=== PATIENT | female | born 1985 | race American Indian/Alaskan Native ===

== ENCOUNTER 2017-07-01 16:58 | Emergency (ER) | payer OTHER ==
[2017-07-01 20:27] LABS: Bilirubin,Urine NEG (Negative); Blood,Urine NEG (Negative); Color,Urine Yellow (Yellow); Mucus,Urine 3+ /HPF; Nitrite,Urine NEG (Negative); Protein,Urine <15 mg/dL mg/dL (Negative)
[2017-07-01 20:44] LABS: HCG Qualitative,Urine Negative (Negative)
[2017-07-02 00:45] VITALS: BP 103/72
[2017-07-02] MEDS ORDERED: ROCEPHIN IM ONE (03:14)
[2017-07-02] MEDS ORDERED: XYLOCAINE 1% MPF 5 mL INFILTRATI ONE (03:14)
[2017-07-02] MEDS ORDERED: ZOFRAN ODT PO ONE (03:15)
[2017-07-02] MEDS ORDERED: ZITHROMAX PO ONE (03:15)
[2017-07-02] MEDS ORDERED: ZOFRAN ODT ONE (03:17)
[2017-07-02] MEDS ORDERED: ZITHROMAX ONE (03:18)
[2017-07-02] MEDS ORDERED: ROCEPHIN ONE (03:18)
--- NOTE | 2017-07-02 04:05 | Emergency Department Report ---
ED Female HPI - General Chief complaint: Urogenital-Female Stated complaint: ABDOMINAL PAIN Time Seen by Provider: 07/02/17 02:52 Source: patient Mode of arrival: Ambulatory Limitations: No Limitations - History of Present Illness MD Complaint: vaginal discharge, possible STD -: Gradual Location: LLQ, RLQ Radiation: non-radiating Severity: mild Severity scale (0 -10): 8 Quality: cramping, other Consistency: intermittent Improves with: none Worsens with: none Are you Now?: No Associated Symptoms: vaginal discharge, vaginal bleeding - Related Data Sexually active: Yes (no condom ) Previous Rx's Medication Instructions Recorded Last Taken Type metroNIDAZOLE [Flagyl] 500 mg PO Q12HR #14 tab 07/02/17 Unknown Rx Allergies Allergy/AdvReac Type Severity Reaction Status Date / Time Sulfa (Sulfonamide Allergy Rash Verified 07/01/17 18:20 Antibiotics) ED Review of Systems ROS: Stated complaint: ABDOMINAL PAIN Other details as noted in HPI Comment: All other systems reviewed and negative Constitutional: no symptoms reported Respiratory: no symptoms reported Cardiovascular: as per HPI Endocrine: no symptoms reported Gastrointestinal: other (tenderness to palpitation to RLQ and LLQ) Genitourinary: discharge. denies: urgency, dysuria ED Past Medical Hx - Past Medical History Previous Medical History?: No Hx Hypertension: No Hx CVA: No Hx Heart Attack/AMI: No Hx Congestive Heart Failure: No Hx Diabetes: No Hx Deep Vein Thrombosis: No Hx Pulmonary Embolism: No Hx Liver Disease: No Hx Renal Disease: No Hx of Cancer: No Hx Sickle Cell Disease: No Hx Arthritis: No Hx Headaches / Migraines: No Hx Seizures: No Hx Kidney Stones: No Hx Psychiatric Treatment: No Hx Asthma: No Hx COPD: No Hx Tuberculosis: No Hx Dementia: No Hx HIV: No - Surgical History Past Surgical History?: Yes Hx Coronary Stent: No Hx Open Heart Surgery: No Hx Pacemaker: No Hx Internal Defibrillator: No Hx Cholecystectomy: No Hx Appendectomy: No Hx Breast Surgery: No Additional Surgical History: ectopic removal x 2 - Social History Smoking Status: Never Smoker Substance Use Type: None - Medications Home Medications: Home Medications Medication Instructions Recorded Confirmed Last Taken Type metroNIDAZOLE [Flagyl] 500 mg PO Q12HR #14 tab 07/02/17 Unknown Rx ED Physical Exam - General Limitations: No Limitations General appearance: alert, in no apparent distress - Head Head exam: Present: normocephalic - Respiratory Respiratory exam: Present: normal lung sounds bilaterally - Cardiovascular Cardiovascular Exam: Present: normal heart sounds - GI/Abdominal GI/Abdominal exam: Present: tenderness, normal bowel sounds. Absent: guarding, rebound, rigid - External exam: Present: normal external exam. Absent: erythema, lesions Speculum exam: Present: vaginal discharge, cervical discharge - Back Exam Back exam: Absent: CVA tenderness (R), CVA tenderness (L) ED Course Vital Signs 07/01/17 07/02/17 18:21 00:26 Temperature 98.1 F 98.4 F Pulse Rate 78 77 Respiratory 16 16 Rate Blood Pressure 114/72 Blood Pressure 103/72 [Right] O2 Sat by Pulse 100 100 Oximetry ED Medical Decision Making - Medical Decision Making Tristan is a 31-year-old -Turk[place] female presents to the emergency room c/o vaginal discharge and abdominal cramping. Patient reports 2 weeks ago she had sexual intercourse without protection. Afterwards she noted vaginal discharge and foul odor. She denies dysuria and polyuria. Upon physical examination external vagina intact. Pelvic exam revealed white discharge. Cervix intact. A wet prep was performed. Patient was cultured for gonorrhea and chlamydia. Results will be pending. Patient empirically treated with Rocephin 250 mg, azithromycin 1 g orally, and Zofran 4 mg orally. No yeast was found with wet prep. Few Trichmonas were found. Patient made aware of rare polymorphonuclear cells. She was informed to follow- up with with [facility] in 2-3 days regarding results. Patient was educated on where to obtain results of culture regarding gonorrhea and chlamydia. She verbalizes full understanding. Critical care attestation.: If time is entered above; I have spent that time in minutes in the direct care of this critically ill patient, excluding procedure time. ED Disposition Clinical Impression: Vaginal discharge, Trichomonas infection Disposition: DC- TO HOME OR SELFCARE Is pt being admited?: No Does the pt Need Aspirin: No Condition: Stable Instructions: Trichomoniasis (ED) Additional Instructions: Patient informed to follow-up with [facility] within 2-3 days. If symptoms worsen or do not improve patient is to return to the emergency room immediately. Patient educated on where to obtain results concerning the culture for gonorrhea and chlamydia. Patient advised to abstain from alcohol until completion of antibiotic treatment. Patient strongly recommended to keep retested to ensure no STI. Prescriptions: metroNIDAZOLE [Flagyl] 500 mg PO Q12HR #14 tab Referrals: TEX DURHAM MD [Primary Care Provider] - 3-5 Days SAI BLACKWELL MD [Referring] - 3-5 Days Forms: Work/School Release Form(ED)
== END 2017-07-02 05:04 | disposition home or self-care (01) ==
LOC: ED 16:58
DX: A59.9 Trichomoniasis, unspecified (principal); N89.8 Other specified noninflammatory disorders of vagina; Z98.890 Other specified postprocedural states; Z88.2 Allergy status to sulfonamides
CPT/HCPCS: 81001; 81025; 87210; 87591; 96372; 99284; J0696; Q0162

== ENCOUNTER 2020-02-20 15:24 | Emergency (ER) | payer SELFPAY | END 2020-02-20 21:35 | disposition left against medical advice (07) | LOC: ED 15:24 | DX: M25.511 Pain in right shoulder (principal); Z53.21 Procedure and treatment not carried out due to patient leaving prior to being seen by health care provider | CPT/HCPCS: 93005 ==

== ENCOUNTER 2020-07-03 14:16 | Emergency (ER) | payer SELFPAY ==
[2020-07-03 15:03] VITALS: BP 111/76
--- NOTE | 2020-07-03 15:08 | Emergency Department Report ---
- General Chief complaint: Skin/Abscess/Foreign Body Stated complaint: CYST ON RT NIPPLE TENDER BREAST Time Seen by Provider: 07/03/20 14:57 Source: patient Mode of arrival: Ambulatory Limitations: No Limitations - History of Present Illness Initial comments: This is a 34-year-old female nontoxic well in appearance with no signs of distress presents to the ED with complaint of right nipple pain with slight swelling. Patient denies any pus, or drainage. Patient denies any other symptoms. Denies any fever, chills, headache, nausea, vomiting, chest pain or SOB. Denies any other complaints. Allergies to Sulfa. Tetanus Up to Date: no Severity: mild Severity scale (0 -10): 3 Improves with: none Worsens with: none Context: none Associated symptoms: denies other symptoms Treatments Prior to Arrival: none - Related Data Previous Rx's Medication Instructions Recorded Last Taken Type metroNIDAZOLE [Flagyl] 500 mg PO Q12HR #14 tab 07/02/17 Unknown Rx Allergies Allergy/AdvReac Type Severity Reaction Status Date / Time Sulfa (Sulfonamide Allergy Rash Verified 07/01/17 18:20 Antibiotics) Abscess Boil HPI - HPI Chief Complaint: Skin/Abscess/Foreign Body Stated Complaint: CYST ON RT NIPPLE TENDER BREAST Time Seen by Provider: 07/03/20 14:57 Home Medications: Previous Rx's Medication Instructions Recorded Last Taken Type metroNIDAZOLE [Flagyl] 500 mg PO Q12HR #14 tab 07/02/17 Unknown Rx Allergies/Adverse Reactions: Allergies Allergy/AdvReac Type Severity Reaction Status Date / Time Sulfa (Sulfonamide Allergy Rash Verified 07/01/17 18:20 Antibiotics) ED Review of Systems ROS: Stated complaint: CYST ON RT NIPPLE TENDER BREAST Other details as noted in HPI Comment: All other systems reviewed and negative Constitutional: denies: chills, fever Eyes: denies: eye pain, eye discharge, vision change ENT: denies: ear pain, throat pain Respiratory: denies: cough, shortness of breath, wheezing Cardiovascular: denies: chest pain, palpitations Endocrine: no symptoms reported Gastrointestinal: denies: abdominal pain, nausea, diarrhea Genitourinary: denies: urgency, dysuria, discharge Musculoskeletal: denies: back pain, joint swelling, arthralgia Skin: denies: rash, lesions Neurological: denies: headache, weakness, paresthesias Psychiatric: denies: anxiety, depression Hematological/Lymphatic: denies: easy bleeding, easy bruising ED Past Medical Hx - Past Medical History Previous Medical History?: No Hx Hypertension: No Hx CVA: No Hx Heart Attack/AMI: No Hx Congestive Heart Failure: No Hx Diabetes: No Hx Deep Vein Thrombosis: No Hx Pulmonary Embolism: No Hx Liver Disease: No Hx Renal Disease: No Hx Sickle Cell Disease: No Hx Arthritis: No Hx Headaches / Migraines: No Hx Seizures: No Hx Kidney Stones: No Hx Psychiatric Treatment: No Hx Asthma: No Hx COPD: No Hx Tuberculosis: No Hx Dementia: No Hx HIV: No - Surgical History Past Surgical History?: Yes Hx Coronary Stent: No Hx Open Heart Surgery: No Hx Pacemaker: No Hx Internal Defibrillator: No Hx Cholecystectomy: No Hx Appendectomy: No Hx Breast Surgery: No Additional Surgical History: ectopic removal x 2. hernia groin - Social History Smoking Status: Never Smoker Substance Use Type: None - Medications Home Medications: Home Medications Medication Instructions Recorded Confirmed Last Taken Type metroNIDAZOLE [Flagyl] 500 mg PO Q12HR #14 tab 07/02/17 Unknown Rx ED Physical Exam - General Limitations: No Limitations General appearance: alert, in no apparent distress - Head Head exam: Present: atraumatic, normocephalic - Eye Eye exam: Present: normal appearance - Neck Neck exam: Present: normal inspection, full ROM - Respiratory Respiratory exam: Absent: respiratory distress - Cardiovascular Cardiovascular Exam: Present: regular rate - Extremities Exam Extremities exam: Present: normal inspection, full ROM - Back Exam Back exam: Present: normal inspection, full ROM. Absent: tenderness, CVA tenderness (R), CVA tenderness (L), muscle spasm, paraspinal tenderness, vertebral tenderness, rash noted - Neurological Exam Neurological exam: Present: alert, oriented X3, normal gait - Psychiatric Psychiatric exam: Present: normal affect, normal mood - Skin Skin exam: Present: warm, dry, intact, normal color. Absent: rash - Other Other exam information: right breast mobile cyst with no induration or flutance noted. No cellulitis or drainage. Vy NICHOLS present during exam. ED Course Vital Signs 07/03/20 14:58 Temperature 98.1 F Pulse Rate 68 Respiratory 18 Rate Blood Pressure 111/76 O2 Sat by Pulse 100 Oximetry - Reevaluation(s) Reevaluation #1: 07/03/20 15:13 Patient is speaking in full sentences with no signs of distress noted. ED Medical Decision Making - Medical Decision Making VSS. Exam is unremarkable. No abscess or celllulitis noted. Patient was instructed to Follow-up with a primary care doctor in 3-5 days or if symptoms worsen and continue return to emergency room as soon as possible. At time of discharge, the patient does not seem toxic or ill in appearance. No acute signs of distress noted. Patient agrees to discharge treatment plan of care. No further questions noted by the patient. Critical care attestation.: If time is entered above; I have spent that time in minutes in the direct care of this critically ill patient, excluding procedure time. ED Disposition Clinical Impression: Cyst of right breast Disposition: DC-01 TO HOME OR SELFCARE Is pt being admited?: No Does the pt Need Aspirin: No Condition: Stable Instructions: Breast Cyst Additional Instructions: Follow-up with a primary care doctor in 3-5 days or if symptoms worsen and continue return to emergency room as soon as possible. Referrals: PRIMARY MD MARGO [Referring] - 3-5 Days DELMY HORNER MD [Staff Physician] - 3-5 Days Forms: Work/School Release Form(ED) Time of Disposition: 15:23
== END 2020-07-03 16:17 | disposition home or self-care (01) ==
LOC: ED 14:16
DX: N60.01 Solitary cyst of right breast (principal); Z79.899 Other long term (current) drug therapy; Z88.2 Allergy status to sulfonamides
CPT/HCPCS: 99281